=== PATIENT | female | born 1965 | race Caucasian/White ===

== ENCOUNTER 2022-10-12 07:40 | Day surgery (SDC) | payer OTHER ==
[~2022-10-12] VITALS: Ht 170.2 cm; Wt 83.9 kg
[2022-10-12] MEDS ORDERED: fentaNYL citrate 0.05 MG/ML VIAL ONE (08:48)
[2022-10-12] MEDS ORDERED: MIDAZOLAM 2 MG/2 ML VIAL ONE (08:48)
[2022-10-12] MEDS ORDERED: MIDAZOLAM 2 MG/2 ML VIAL IVP ONE (09:05)
[2022-10-12] MEDS ORDERED: MIDAZOLAM 2 MG/2 ML VIAL IVP SCH (09:30)
== END 2022-10-12 09:30 | disposition home or self-care (01) ==
LOC: MOR 07:40 → MMU 07:41 → MOR 09:30
PROVIDERS: ATTEND Internal Medicine Gastroenterology
DX: R10.12 Left upper quadrant pain (principal); Z20.822 Contact with and (suspected) exposure to COVID-19
CPT/HCPCS: 36415; 43239; 86677; 87426; J2250; J3010